=== PATIENT | male | born 1960 | race Caucasian/White ===

== ENCOUNTER 2018-02-19 08:16 | Emergency (ER) | payer OTHER ==
[~2018-02-19] VITALS: Ht 165.1 cm; Wt 77.1 kg
[2018-02-19 08:55] VITALS: BP 155/80
[2018-02-19] MEDS ORDERED: HYDROcodone/APAP 5/325MG 1 TAB TABLET PO ONE (09:15)
--- NOTE | 2018-02-19 09:53 | RAD ---
History: Fall on ice today. Right-sided pain. Comparison: None. Findings: AP view of the pelvis. AP and frog-leg views of the right hip. No acute fracture or dislocation is identified. Vasectomy clips are seen. Impression: No acute osseous abnormality identified. Electronically signed by: Chuck Rubio MD (02/19/2018 9:49 AM) [facility]
--- NOTE | 2018-02-19 09:54 | RAD ---
PA chest and right rib radiographs, 3 images. History: Fell on ice today. Pain. Comparison: None. Findings: Cardiomediastinal silhouette is within normal limits for size. Bilateral lung begum appear clear without evidence of infiltrate, effusion, or pneumothorax. There are 11 well-formed pairs of ribs and mildly hypoplastic right and significantly less than left 4th ribs. No displaced rib fractures are identified. Impression: 1. No acute abnormality identified in the chest. Electronically signed by: Chuck Rubio MD (02/19/2018 9:51 AM) [place] [id number]
[2018-02-19] MEDS ORDERED: HYDR-3164 PO (09:58)
--- NOTE | 2018-02-19 09:59 | PHYS DOC ---
Past Medical History Past Medical History: No Pertinent History Past Surgical History: Other Additional Past Surgical Histo: dental Alcohol Use: None Drug Use: None Adult General Chief Complaint Chief Complaint: MECHANICAL FALL HPI HPI Patient is a 57 year old [f__sex] who presents with [] Review of Systems Review of Systems Constitutional: Denies fever or chills [] Eyes: Denies change in visual acuity, redness, or eye pain [] HENT: Denies nasal congestion or sore throat [] Respiratory: Denies cough or shortness of breath [] Cardiovascular: No additional information not addressed in HPI [] GI: Denies abdominal pain, nausea, vomiting, bloody stools or diarrhea [] : Denies dysuria or hematuria [] Musculoskeletal: Denies back pain or joint pain [] Integument: Denies rash or skin lesions [] Neurologic: Denies headache, focal weakness or sensory changes [] Endocrine: Denies polyuria or polydipsia [] All other systems were reviewed and found to be within normal limits, except as documented in this note. Current Medications Current Medications Current Medications Medications (Trade) Dose Ordered Sig/Lizzy Start Time Stop Time Status Last Admin Dose Admin Acetaminophen/ Hydrocodone Bitart (Lortab 5/325) 2 tab 1X ONCE 02/19/18 09:15 02/19/18 09:16 DC 02/19/18 09:18 2 TAB Allergies Allergies Allergies Coded Allergies Type Severity Reaction Last Updated Verified No Known Drug Allergies 02/19/18 No Physical Exam Physical Exam Constitutional: Well developed, well nourished, no acute distress, non-toxic appearance. [] HENT: Normocephalic, atraumatic, bilateral external ears normal, oropharynx moist, no oral exudates, nose normal. [] Eyes: PERRLA, EOMI, conjunctiva normal, no discharge. [] Neck: Normal range of motion, no tenderness, supple, no stridor. [] Cardiovascular:Heart rate regular rhythm, no murmur [] Lungs & Thorax: Bilateral breath sounds clear to auscultation [] Abdomen: Bowel sounds normal, soft, no tenderness, no masses, no pulsatile masses. [] Skin: Warm, dry, no erythema, no rash. [] Back: No tenderness, no CVA tenderness. [] Extremities: No tenderness, no cyanosis, no clubbing, ROM intact, no edema. [] Neurologic: Alert and oriented X 3, normal motor function, normal sensory function, no focal deficits noted. [] Psychologic: Affect normal, judgement normal, mood normal. [] Current Patient Data Vital Signs Vital Signs Date Time Temp Pulse Resp B/P (MAP) Pulse Ox O2 Delivery O2 Flow Rate FiO2 02/19/18 09:18 16 98 Room Air 02/19/18 08:55 97.8 69 155/80 (105) 97.8 EKG EKG [] Radiology/Procedures Radiology/Procedures [] Course & Med Decision Making Course & Med Decision Making Pertinent Labs and Imaging studies reviewed. (See chart for details) [] Dragon Disclaimer Dragon Disclaimer This electronic medical record was generated, in whole or in part, using a voice recognition dictation system. Departure Departure Impression: Primary Impression: Fall Additional Impression: Multiple contusions Disposition: 01 HOME, SELF-CARE Condition: STABLE Referrals: NO PCP (PCP) Patient Instructions: Contusions-SportsMed Additional Instructions: You were prescribed small amount of pain medication. You may also take ibuprofen for breakthrough pain. Follow-up with your primary care provider if not improving in 4 days. Sling return to the emergency department. Scripts Hydrocodone/Apap 5-325 (NORCO 5-325 TABLET) 1 Each Tablet 1 TAB PO PRN Q6HRS PRN for PAIN, #14 TAB 0 Refills Prov: EMELY HOLLIS APRN 02/19/18 Problem Qualifiers EMELY HOLLIS APRN Feb 19, 2018 09:58
== END 2018-02-19 10:07 | disposition home or self-care (01) ==
LOC: ER 08:16
DX: S70.01XA Contusion of right hip, initial encounter (principal); S20.211A Contusion of right front wall of thorax, initial encounter; S40.011A Contusion of right shoulder, initial encounter; S00.93XA Contusion of unspecified part of head, initial encounter; S80.11XA Contusion of right lower leg, initial encounter; W00.0XXA Fall on same level due to ice and snow, initial encounter; Y93.89 Activity, other specified; Y92.89 Other specified places as the place of occurrence of the external cause; Y99.8 Other external cause status
CPT/HCPCS: 71101; 73502; 99283